=== PATIENT | female | born 1985 | race African-American/Black ===

== ENCOUNTER 2017-01-27 18:24 | Emergency (ER) | payer OTHER ==
[~2017-01-27 18:24] MED LIST: ACET500CAP PO; ALBUTEROL; ALBUTEROL NEBULIZER; ALBUTEROL5 INH; COMBIVENT INH; FLOVENT110 INH; MUCINEX600 MG PO; NORCO1 TA2 PO; ORTHO EVRA PATCH TOP; ORTHO EVRA TOP; P20 PO; PR25 PO; PROAIR HFA INH; PROVENTIL INH; PROVENTSOL INH; PROVHFA INH; PROVHFA PO; SINGULAIR; SINGULAIR1 PO; STERAPRED DS10 MG PO; SYMBICORT 160/41 INH INH; [UNRECOGNIZED DRUG - REMARK] PO; [UNRECOGNIZED DRUG - REMARK] PO
[2017-01-27 19:53] LABS: BASOPHILS 0.1 %; BASOPHILS ABSOLUTE 0.01 10/3/uL (0.0-0.16); EOSINOPHILS 0.5 %; EOSINOPHILS ABSOLUTE 0.04 10/3/uL (0.0-0.53); HEMOGLOBIN 13.9 g/dL (12.0-16.0); IMMATURE GRANULOCYTES 0.1 %; IMMATURE GRANULOCYTES ABSOLUTE 0.01 10/3/uL (0.0-0.11); LYMPHOCYTES 18.6 %; LYMPHOCYTES ABSOLUTE 1.49 10/3/uL (0.67-4.30); MEAN CORPUS HGB CONC 32.3 g/dL (32.0-36.0); MEAN CORPUSCULAR HEMOGLOB 29.4 pg (26.0-34.0); MONOCYTES 7.7 %; MONOCYTES ABSOLUTE 0.62 10/3/uL (0.21-1.20); NEUTROPHILS ABSOLUTE 5.85 10/3/uL (2.02-8.40); PLATELET COUNT 184 10/3/uL (150-400); RBC DISTRIBUTION WIDTH 14.4 % (12.0-16.0); RED CELL COUNT 4.72 10/6/uL (4.0-5.6)
[2017-01-27 19:54] LABS: ER CBC TAT 0 Hrs 10 Mins; MEAN CORPUSCULAR VOLUME 91.1 fL (80-100)
[2017-01-27 19:55] LABS: MANUAL DIFF NO %
[2017-01-27 20:00] LABS: ASCORBIC ACID (UR NOT ORDER) NEG (NEG); BILIRUBIN, URINE NEGATIVE (NEG); ER URINALYSIS TAT 0 Hrs 16 Mins; KETONE, URINE 80 MG/DL (NEG); NITRITE (URINE) NEG (NEG); WBC (NOT ORDERED) (RFLEX) 3 (0-5)
[2017-01-27 20:01] LABS: LEUKOCYTE ESTERASE(NOT OR TRACE (NEG)
[2017-01-27 20:10] LABS: A/G RATIO 0.7 (0.7-1.9); ALBUMIN 3.3 G/DL (3.5-5.0); ALKALINE PHOSPHATASE 55 U/L (45-117); BUN (BLOOD UREA NITROGEN) 7 MG/DL (6-23); CALCIUM, SERUM 8.9 MG/DL (8.5-10.4); CHLORIDE, SERUM 105 MMOL/L (96-112); CO2 (CARBON DIOXIDE) 22 MMOL/L (24-34); CREATININE 0.72 MG/DL (0.55-1.02); GFR AFRICAN AMERICAN 129 ML/MIN (>=60); GFR NON AFRICAN AMERICAN 112 ML/MIN (>=60); GLUCOSE, SERUM 72 MG/DL (60-99); POTASSIUM, SERUM 3.8 MMOL/L (3.5-5.3); SGOT(AST) 14 U/L (5-40); SGPT(ALT) 18 U/L (5-65); SODIUM, SERUM 138 MMOL/L (135-148); TOTAL BILIRUBIN 0.6 MG/DL (0-1.2); TOTAL PROTEIN 7.8 G/DL (6.0-8.5)
[2017-01-27 20:11] LABS: GLOBULIN 4.5 G/DL (2.5-4.1)
[2017-01-27 20:16] LABS: INFLUENZA A SCREEN NEGATIVE (NEGATIVE); INFLUENZA B SCREEN NEGATIVE (NEGATIVE)
[2017-01-27 20:45] LABS: PLATELET ESTIMATE ADQ (ADEQUATE)
== END 2017-01-28 00:15 | disposition left against medical advice (07) ==
LOC: ER 18:24
PROVIDERS: Nurse Practitioner
DX: R05 Cough (principal); J02.9 Acute pharyngitis, unspecified; R52 Pain, unspecified; Z53.21 Procedure and treatment not carried out due to patient leaving prior to being seen by health care provider
CPT/HCPCS: 80053; 81001; 83690; 84703; 85025; 87070; 87804; 87880